=== PATIENT | female | born 1955 | race Caucasian/White ===

== ENCOUNTER 2018-06-28 17:56 | Observation (INO) ==
[2018-06-28] MEDS ORDERED: Naloxone 0.4 MG/ML INJ IVP PRN (21:00)
--- NOTE | 2018-06-28 22:06 | Internal Med History&Physical ---
<Shayla Carrillo Bibiana - Last Filed: 06/29/18 06:58> Date of Encounter: 06/29/18 Internal Medicine - H&P: HPI History of present illness: Ms. Elizabeth is a 62 year old female Internal Medicine - H&P: Meds Aspirin [Lo-Dose Aspirin EC] 81 mg PO DAILY 03/15/17 [History] Cholecalciferol (D-3) [Vitamin D] 1,000 unit PO DAILY 03/15/17 [History] Cyanocobalamin (Vitamin B-12) [Vitamin B12] 1,000 mcg PO DAILY 03/15/17 [History ] Folic Acid 0.4 mg PO DAILY 03/15/17 [History] Multivitamin [Multivitamins] 1 tab PO DAILY 03/15/17 [History] Sertraline [Zoloft] 50 mg PO DAILY 03/15/17 [History] Amlodipine Besylate/Benazepril [Lotrel 5-20 mg Capsule] 1 tab PO DAILY 06/29/18 [History] Atenolol [Tenormin] 25 mg PO DAILY 06/29/18 [History] Furosemide [Lasix] 40 mg PO DAILY 06/29/18 [History] Lovastatin 40 mg PO QPM 06/29/18 [History] 3 Allergy/AdvReac Type Severity Reaction Status Date / Time ibuprofen [From Motrin] AdvReac See Verified 03/15/17 19:32 Comments All Systems PM: A 10-system review of systems was performed and is negative for pertinent findings except as documented above in the HPI. - Constitutional Vitals: Temp Pulse Resp BP Pulse Ox 98.5 F 65 17 131/78 96 06/29/18 00:15 06/29/18 00:15 06/29/18 00:15 06/29/18 00:15 06/29/18 00:15 Internal Med - H&P Results - Labs CBC & Chem 7: 06/29/18 05:13 Labs: BMP 06/29/18 05:13 Sodium 137 Potassium 3.6 Chloride 104 Carbon Dioxide 24 BUN 9 Creatinine 0.68 Glucose 131 H Calcium 8.1 L Cardiac Enzymes 06/28/18 06/29/18 Range/Units 22:35 05:13 Troponin I 0.05 H* 0.04 H* (< 0.04) ng/mL - Assessment and plan (1) UTI (urinary tract infection) Current Visit: No Status: Inactive (2) Elevated troponin Current Visit: Yes Status: Inactive (3) Elevated brain natriuretic peptide (BNP) level Current Visit: Yes Status: Acute (4) Hyperglycemia Current Visit: Yes Status: Acute (5) DVT prophylaxis Current Visit: Yes Status: Acute (6) Hypophosphatemia Current Visit: Yes Status: Acute - Time Spent With Patient Total time spent is greater than 50% in coordination of care (as documented) at patient's floor/unit and/or counseling patient: - Attending Attestation Patient seen and examined. Chart including labs reviewed. Case discussed with resident. Agree with assessment and plan. In short patient is a 62-year-old female with a past medical history of hypertension and hyperlipidemia who presents with several day history of fever and chills. History and laboratory workup concerning for possible UTI. Patient also reportedly became transiently hypoxemic with sats dropping into the high 80s while at [facility]. Responded to O2 support. ABG was performed which shows a mild metabolic alkalosis likely secondary to contraction alkalosis in the setting of decreased by mouth intake and continued Lasix use. She reports history of anxiety. Patient received 1 dose of Rocephin at [facility] prior to transfer. We will follow-up blood and urine cultures. We will continue antibiotics. Given elevated BNP, hypoxemia and elevated troponin, likely secondary to demand, we will obtain echocardiogram. Patient however denies any chest pain and initial EKG was unremarkable. Continue to trend troponin. <Mary Kay Francis - Last Filed: 06/29/18 11:03> Date of Encounter: 06/29/18 Time of Encounter: 22:04 Internal Medicine - H&P: HPI Chief complaint: UTI, fevers/chills Admitted From: Home Plans for Post Hospital Care: Home History of present illness: Ms. Elizabeth is a 62 year old female with PMH of HTN and HLD presenting to the emergency department with c/o urinary incontinence, fevers/chills, and feeling sick. Endorses urinary symptoms of frequency, incontinence above baseline, and discomfort with urination x 5 days. She denies hematuria, pyuria, and malodorous urine. She also reports nausea, vomiting, fevers, chills, intermittent diaphoresis, and dull ache in the lower back bilaterally x 3 days. Tmax at home 39.6 degrees Celsius; she took extra strength Tylenol for fever today but doesn't know the dosage. She denies experiencing chest pain or pressure, but does admit to some shortness of breath. She is able to walk from one room of her home to the next without dyspnea, but reports she is unable to walk to her mailbox without getting short of breath; she also mentions history of anxiety that sometimes gives her shortness of breath. Patient denies personal history of PAD, CVA/TIA, MD, CABG, PCI/stent; denies personal history of DM and states that scratch that and states she wouldnt be surprised to find out she does have diabetes. Reports history of stress test ( false positive) followed by negative C about 15 years ago at outside hospital--she states these tests were part of a workup that revealed she had an adverse reaction of chest pain to Motrin/ibuprofen. Family history significant for hypertension as well as of her father at age 43 from massive heart attack. Patient is a former tobacco smoker and quit over 25 years ago and reports two large glasses of wine daily. [facility] ED: Patient reportedly febrile and was given Tylenol which helped reduce the fever. Initial EKG unremarkable. First troponin 0.08, BNP 768, glucose 156 , phosphate 1.9, lactate 1.5. No leukocytosis. Urine positive for leukocyte esterase, WBCs, and few bacteria. Episode of hypoxia around 88% room air with response to 96% on 2 L nasal cannula. Patient transferred to this facility for further evaluation and care. Past Med Surg Social Fam HX - Past Medical History Medical history: hyperlipidemia, hypertension Psychiatric history: anxiety - Past Surgical History Additional surgical history: gastric bypass - Social History Smoking Status: Never smoker Smokeless Tobacco Status: No Alcohol use: none, occasionally Drug use: none - Family History Mother Hx Family Cardiac Disorders: Yes All Systems PM: A 10-system review of systems was performed and is negative for pertinent findings except as documented above in the HPI. - Constitutional Constitutional: as per HPI - Cardiovascular Cardiovascular ROS IM: as per HPI, no claudication - Respiratory Respiratory: as per HPI, cough (dry) - Gastrointestinal Gastrointestinal: as per HPI, diarrhea - Genitourinary Genitourinary: as per HPI - Musculoskeletal Musculoskeletal ROS IM: as per HPI - Constitutional Vitals: Temp Pulse Resp BP Pulse Ox 98.7 F 62 17 146/64 93 10/11/18 20:44 06/28/18 20:44 06/28/18 20:44 06/28/18 20:44 06/28/18 20:44 General appearance: Present: A&O X 3, no acute distress, obese, answers questions appropriately Exam: . - Head Head exam: Present: atraumatic, normocephalic - Eye Eye exam: Present: EOMI, PERRL, sclera anicteric Pupils: Present: PERRL - Neck Neck exam general surgery: Present: supple, trachea midline - Respiratory Respiratory exam: Present: CTAB. Absent: rales, respiratory distress, rhonchi, wheezes, tachypnea - Cardiovascular Cardiovascular exam: Present: distant heart sounds, RRR, +S1, +S2. Absent: gallop, rubs - GI/Abdominal GI/Abdominal exam: Present: normal bowel sounds, soft. Absent: distended, guarding, rebound, rigid, tenderness, no peritoneal signs - Extremities Exam Extremities exam: Present: pedal edema (BLE +1 pitting), warm. Absent: cyanotic , tenderness - Back Exam Back exam: Absent: CVA tenderness (L), CVA tenderness (R) - Neurological Exam Neurological exam: Present: alert, CN II-XII intact, oriented X3, no focal deficits. Absent: facial droop, speech deficit - Skin Skin exam: Present: dry, intact, normal color, warm. Absent: diaphoretic, erythema Internal Med - H&P Results - Labs CBC & Chem 7: 06/29/18 05:13 - Assessment and plan (1) UTI (urinary tract infection) Current Visit: Yes Status: Acute Assessment and plan: UA and urine micro significant for leukocyte esterase, WBCs, and bacteria Urine and blood culture results pending Per ED report she received Rocephin 1 g IVP--continue empiric antibiotic for now Continue to monitor for fever Qualifiers: Urinary tract infection type: site unspecified Hematuria presence: without hematuria Qualified Code(s): N39.0 - Urinary tract infection, site not specified (2) Elevated troponin Current Visit: Yes Status: Inactive Assessment and plan: Troponins 0.08 --> 0.05--> 0.04 Etiology unclear: Undiagnosed CHF vs ACS vs manned ischemia--rule out ACS Most likely d/t demand ischemia in the setting of decreased PO intake, N/V No h/o CHF per pt, however her BNP is 768, BLE edema above baseline, increased MARTINEZ--Echocardiogram in AM, normal recommend cardiology consult EKG showing NSR, no evidence of acute ischemia Strong family hx of HTN and father age 43 from "massive heart attack" (3) Elevated brain natriuretic peptide (BNP) level Current Visit: Yes Status: Acute Assessment and plan: BNP 768 with increased BLE edema and increased MARTINEZ per patient--echocardiogram in a.m. (4) Hyperglycemia Current Visit: Yes Status: Acute Assessment and plan: No known h/o DM, but patient states she "wouldn't be surprised" if she learned she was--Hgb A1c pending (5) Hypophosphatemia Current Visit: Yes Status: Acute Assessment and plan: Phosphate 1.9 on presentation to [facility] ED--replace and recheck (6) Metabolic alkalosis Current Visit: Yes Status: Acute Assessment and plan: Likely resulting from contraction alkalosis in the setting of decreased PO intake and continued Lasix use ABG: pH 7.48 / pCO2 41 / HCO3 30 IV fluid replacement (7) Hypoxemia Current Visit: Yes Status: Inactive Assessment and plan: Acute, resolved SpO2 88% room air @ [facility] ED, responded with 2L nasal cannula SpO2 93-96% ABG: pH 7.48 / pCO2 41 / pO2 87 / HCO3 30 (8) DVT prophylaxis Current Visit: Yes Status: Acute Assessment and plan: Heparin 5, 000 units SubQ Q8H - Time Spent With Patient Total time spent is greater than 50% in coordination of care (as documented) at patient's floor/unit and/or counseling patient:
[2018-06-28] MEDS: *HR* Heparin 5,000 UNIT/ML VIAL SQ SCH (23:05)
[2018-06-28] MEDS: 0.9 % Sodium Chloride 1,000 ML IVC SCH (23:05)
[2018-06-29 06:01] LABS: BUN/Creatinine Ratio 13 (6-26); Blood Urea Nitrogen 9 mg/dL (8-23); Calcium 8.1 mg/dL (8.6-10.3); Carbon Dioxide 24 mEq/L (23-29); Chloride 104 mEq/L (98-107); Chol/HDL Ratio 2.3 (0-4.9); Cholesterol 131 mg/dL (< 200); Glucose 131 mg/dL (70-105); HDL Cholesterol 57 mg/dL (40-59); LDL Cholesterol,Calculated 52 mg/dL (0-99); Osmolality,Calculated 284 (280-300); Potassium 3.6 mEq/L (3.5-5.1); Sodium 137 mEq/L (136-145); Triglycerides 112 mg/dL (< 150); eGFR For Non-African Americans > 60 (> 60)
[2018-06-29 06:09] LABS: Troponin I 0.04 ng/mL (< 0.04)
[2018-06-29] MEDS: *HR* Heparin 5,000 UNIT/ML VIAL SQ SCH ×3 (06:12→23:00)
[2018-06-29] MEDS: cefTRIAXone 1,000 MG in Water for inj. (sterile) 20 ML 10 ML IVP SCH (08:02)
[2018-06-29] MEDS ORDERED: Acetaminophen 325 MG TABLET PO PRN (08:30)
[2018-06-29] MEDS: Furosemide 40 MG TABLET PO SCH ×2 (08:58→09:20)
[2018-06-29] MEDS: Lisinopril 20 MG TABLET PO SCH (08:59)
[2018-06-29] MEDS: Folic Acid 1 MG TABLET PO SCH (08:59)
[2018-06-29] MEDS: Aspirin Enteric Coated 81 MG Tablet PO SCH (08:59)
[2018-06-29] MEDS: amLODIPine 5 MG TABLET PO SCH (08:59)
[2018-06-29] MEDS: Cyanocobalamin (B-12) 1,000 MCG TABLET PO SCH (08:59)
[2018-06-29] MEDS: Cholecalciferol (D-3) 1,000 UNIT TABLET PO SCH (08:59)
[2018-06-29] MEDS: Multivit/Ca/Min/Fe/FA 1 TAB TABLET PO SCH (08:59)
[2018-06-29] MEDS ORDERED: cefTRIAXone 1,000 MG in Water for inj. (sterile) 20 ML 10 ML IVP SCH (09:00)
[2018-06-29 09:10] LABS: Estimated Average Glucose 134 mg/dl; Hemoglobin A1C 6.3 %
--- NOTE | 2018-06-29 11:25 | Internal Med Progress Note ---
Hospitalist Progress Note - Encounter Date of Encounter: 06/29/18 Time of Encounter: 09:00 - Subjective Interval History: Pt feels better. Still has low fever. Denies N/V/flank pain. Has dysuria in ER. Denies CP/SOB. - Exam Vitals: Temp Pulse Resp BP Pulse Ox 100.1 F H 78 19 155/99 93 06/29/18 08:00 06/29/18 08:00 06/29/18 08:00 06/29/18 08:00 06/29/18 08:00 Exam: Pt is AAO x 3, in NAD HEENT: NC/AT, PERRL Neck: Supple, no JVD, no LAD Lungs: CTA b/l Heart: S1S2, RRR Abd: Soft, NT, CVAT negative b/l Ext: no pedal edema. Neuro: AAO x 3, no focal deficit. - Assessment and Plan (1) UTI (urinary tract infection) Current Visit: Yes Status: Acute Assessment and Plan: Improved fever/symptoms on iv rocephin, will cont. - Blood and urine culture sent by [facility], result pending - No signs of pyelonephritis. (2) Elevated troponin Current Visit: Yes Status: Inactive Assessment and Plan: Troponins 0.08 --> 0.05--> 0.04 - Pt denies chest pain. - Most likely demand ischemia from UTI/Fever (3) Elevated brain natriuretic peptide (BNP) level Current Visit: Yes Status: Acute Assessment and Plan: No signs of fluid overload. Echo shows EF 55%, moderate diastolic dysfunction. Will cont closely monitor fluid status. Will cont pt's home meds po lasix. (4) Hyperglycemia Current Visit: Yes Status: Acute Assessment and Plan: No known h/o DM, but patient states she "wouldn't be surprised" if she learned she was--Hgb A1c 6.3, consider prediabetes. Place her on DM diet. (5) DVT prophylaxis Current Visit: Yes Status: Acute Assessment and Plan: Heparin 5, 000 units SubQ Q8H (6) Hypophosphatemia Current Visit: Yes Status: Acute Assessment and Plan: Phosphate 1.9 on presentation to [place] ED--replace and recheck (7) Hypoxemia Current Visit: Yes Status: Inactive Assessment and Plan: CXR in [facility] ER shows no acute change. Cont supportive treatment with NC O2 as needed. - Time Spent with Patient Total time spent is greater than 50% in coordination of care (as documented) at patient's floor/unit and/or counseling patient: 30 min 25 - 35 minutes Plan of Care Discussed with: patient Internal Medicine: Result - Labs CBC & Chem 7: 06/29/18 05:13 Labs: BMP 06/29/18 05:13 Sodium 137 Potassium 3.6 Chloride 104 Carbon Dioxide 24 BUN 9 Creatinine 0.68 Glucose 131 H Calcium 8.1 L Cardiac Enzymes 06/28/18 06/29/18 Range/Units 22:35 05:13 Troponin I 0.05 H* 0.04 H* (< 0.04) ng/mL - Impressions Impressions Echocardiogram 06/29/18 22:43 Impressions: LVEF 55%. Not all LV wall segments were well visualized. Moderate left ventricular diastolic dysfunction. Normal right ventricular structure and function. Trivial valvular dysfunction. Consult Discharge Plan - Plan Referrals: Addy Solorio MD [Primary Care Provider] - (1) UTI (urinary tract infection) Qualifiers: Urinary tract infection type: site unspecified Hematuria presence: without hematuria Qualified Code(s): N39.0 - Urinary tract infection, site not specified
[2018-06-29 12:17] LABS: Phosphorous 2.1 mg/dL (2.7-4.5)
[2018-06-29] MEDS: 0.9 % Sodium Chloride 1,000 ML IVC SCH (13:39)
[2018-06-29] MEDS: Melatonin 3 MG TABLET PO PRN (20:24)
[2018-06-30 04:56] LABS: Basophils % 0.5 %; Eosinophils % 0.5 %; Hematocrit 33.8 % (35.3-44.9); Hemoglobin 10.9 g/dL (11.5-15.4); Immature Granulocytes % 0.3 % (0-4); Lymphocytes # 1.5 K/mcL (0.6-4.6); Lymphocytes % 17.4 %; Mean Corpuscular HGB Conc 32.2 g/dL (31.6-35.5); Mean Corpuscular Hemoglobin 32.2 pg (28.0-33.3); Mean Platelet Volume 10.3 fL (9.4-12.4); Monocytes # 1.1 K/mcL (0.0-1.3); Monocytes % 12.9 %; Neutrophils # 5.9 K/mcL (1.6-8.9); Platelet Count 165 K/mcL (140-400); Red Blood Count 3.38 M/mcL (3.82-4.97); Red Cell Distribution Width 14.3 % (11.5-14.5); Segmented Neutrophils % 68.4 %
[2018-06-30] MEDS: *HR* Heparin 5,000 UNIT/ML VIAL SQ SCH ×3 (05:10→21:04)
[2018-06-30 05:17] LABS: BUN/Creatinine Ratio 13 (6-26); Blood Urea Nitrogen 8 mg/dL (8-23); Calcium 8.6 mg/dL (8.6-10.3); Carbon Dioxide 27 mEq/L (23-29); Chloride 104 mEq/L (98-107); Glucose 145 mg/dL (70-105); Osmolality,Calculated 285 (280-300); Potassium 3.5 mEq/L (3.5-5.1); Sodium 137 mEq/L (136-145); eGFR For Non-African Americans > 60 (> 60)
[2018-06-30] MEDS: cefTRIAXone 1,000 MG in Water for inj. (sterile) 20 ML 10 ML IVP SCH (09:55)
[2018-06-30] MEDS: Lisinopril 20 MG TABLET PO SCH (09:56)
[2018-06-30] MEDS: Aspirin Enteric Coated 81 MG Tablet PO SCH (09:56)
[2018-06-30] MEDS: Furosemide 40 MG TABLET PO SCH (09:56)
[2018-06-30] MEDS: amLODIPine 5 MG TABLET PO SCH (09:56)
[2018-06-30] MEDS: Folic Acid 1 MG TABLET PO SCH (09:56)
[2018-06-30] MEDS: Cholecalciferol (D-3) 1,000 UNIT TABLET PO SCH (09:56)
[2018-06-30] MEDS: Cyanocobalamin (B-12) 1,000 MCG TABLET PO SCH (09:56)
[2018-06-30] MEDS: Multivit/Ca/Min/Fe/FA 1 TAB TABLET PO SCH (09:56)
--- NOTE | 2018-06-30 11:23 | Internal Med Progress Note ---
Hospitalist Progress Note - Encounter Date of Encounter: 06/30/18 Time of Encounter: 09:00 - Subjective Interval History: Pt feels better. No overnight fever. Denies N/V/flank pain. Denies CP/SOB. - Exam Vitals: Temp Pulse Resp BP Pulse Ox 97.9 F 58 18 135/65 94 06/30/18 10:56 06/30/18 10:56 06/30/18 10:56 06/30/18 10:56 06/30/18 10:56 Exam: Pt is AAO x 3, in NAD HEENT: NC/AT, PERRL Neck: Supple, no JVD, no LAD Lungs: CTA b/l Heart: S1S2, RRR Abd: Soft, NT, CVAT negative b/l Ext: no pedal edema. Neuro: AAO x 3, no focal deficit. - Assessment and Plan (1) UTI (urinary tract infection) Current Visit: Yes Status: Acute Assessment and Plan: Improved fever/symptoms on iv rocephin, will cont. - Blood and urine culture sent by [facility], result pending - No signs of pyelonephritis. (2) Elevated troponin Current Visit: Yes Status: Inactive Assessment and Plan: Troponins 0.08 --> 0.05--> 0.04 - Pt denies chest pain. - Most likely demand ischemia from UTI/Fever (3) Elevated brain natriuretic peptide (BNP) level Current Visit: Yes Status: Acute Assessment and Plan: No signs of fluid overload. Echo shows EF 55%, moderate diastolic dysfunction. Will cont closely monitor fluid status. Will cont pt's home meds po lasix. (4) Hyperglycemia Current Visit: Yes Status: Acute Assessment and Plan: No known h/o DM, but patient states she "wouldn't be surprised" if she learned she was--Hgb A1c 6.3, consider prediabetes. Place her on DM diet. FBS 145 today (5) DVT prophylaxis Current Visit: Yes Status: Acute Assessment and Plan: Heparin 5, 000 units SubQ Q8H (6) Hypoxemia Current Visit: Yes Status: Inactive Assessment and Plan: CXR in [facility] shows no acute change. Cont supportive treatment with NC O2 as needed. Pt's SpO2 94% in RA when I see her today. Denies cough/SOB DVT Prophylaxis: Heparin SC - Time Spent with Patient Total time spent is greater than 50% in coordination of care (as documented) at patient's floor/unit and/or counseling patient: 25 - 35 minutes Plan of Care Discussed with: patient Internal Medicine: Result - Labs CBC & Chem 7: 06/30/18 04:38 06/30/18 04:38 Labs: Short CBC 06/30/18 Range/Units 04:38 WBC 8.7 (4.3-11.1) K/mcL Hgb 10.9 L (11.5-15.4) g/dL Hct 33.8 L (35.3-44.9) % Plt Count 165 (140-400) K/mcL Neutrophils # 5.9 (1.6-8.9) K/mcL BMP 06/30/18 04:38 Sodium 137 Potassium 3.5 Chloride 104 Carbon Dioxide 27 BUN 8 Creatinine 0.62 Glucose 145 H Calcium 8.6 Consult Discharge Plan - Plan Referrals: Addy Solorio MD [Primary Care Provider] - (1) UTI (urinary tract infection) Qualifiers: Urinary tract infection type: site unspecified Hematuria presence: without hematuria Qualified Code(s): N39.0 - Urinary tract infection, site not specified
[2018-06-30] MEDS: Melatonin 3 MG TABLET PO PRN (21:03)
[2018-07-01] MEDS: *HR* Heparin 5,000 UNIT/ML VIAL SQ SCH (05:20)
[2018-07-01] MEDS: Lisinopril 20 MG TABLET PO SCH (07:41)
[2018-07-01] MEDS: amLODIPine 5 MG TABLET PO SCH (07:41)
[2018-07-01] MEDS: Furosemide 40 MG TABLET PO SCH (07:41)
[2018-07-01] MEDS: Aspirin Enteric Coated 81 MG Tablet PO SCH (07:42)
[2018-07-01] MEDS: Multivit/Ca/Min/Fe/FA 1 TAB TABLET PO SCH (07:42)
[2018-07-01] MEDS: Cholecalciferol (D-3) 1,000 UNIT TABLET PO SCH (07:42)
[2018-07-01] MEDS: Cyanocobalamin (B-12) 1,000 MCG TABLET PO SCH (07:42)
[2018-07-01] MEDS: Folic Acid 1 MG TABLET PO SCH (07:42)
[2018-07-01] MEDS: cefTRIAXone 1,000 MG in Water for inj. (sterile) 20 ML 10 ML IVP SCH (07:42)
--- NOTE | 2018-07-01 10:39 | Discharge Summary ---
Orders not resulted at time of discharge: Pending orders 06/28/18 21:03 ECG 12 lead ECG [ECG] Stat Date of Encounter: 07/01/18 Time of Encounter: 09:00 - Discharge Diagnosis (1) UTI (urinary tract infection) Priority: Primary Status: Acute Qualifiers: Urinary tract infection type: site unspecified Hematuria presence: without hematuria Qualified Code(s): N39.0 - Urinary tract infection, site not specified (2) Elevated troponin Priority: Primary Status: Inactive (3) Elevated brain natriuretic peptide (BNP) level Priority: Primary Status: Acute (4) Hyperglycemia Priority: Secondary Status: Acute (5) DVT prophylaxis Priority: Secondary Status: Acute (6) Hypophosphatemia Priority: Secondary Status: Acute (7) Morbid obesity Priority: Secondary Status: Acute (8) Pre-diabetes Priority: Secondary Status: Acute (9) Diastolic CHF Priority: Secondary Status: Acute Qualifiers: Heart failure chronicity: chronic Qualified Code(s): I50.32 - Chronic diastolic (congestive) heart failure Hospital course: Ms. Elizabeth is a 62 year old female present to [facility] ER for fever and dysuria. Pt was admitted as UTI. She was treated with iv rocephin and fever resolved. Urine culture shows E Coli sensitive to rocephin and cipro. Will d/c pt home with po cipro. Pt's O2 at lower side, and snore during night. Echo shows diastolic CHF. Before discharge, 6 minwalking test down and pt not qualified for home O2. I have seen and examined pt. She is AAO x 3, no fever, no SOB, denies dysuria/ flank pain.nausea. Vitals stable. Pt was advice lose weight. Her HgA1C 6.3, consider pre-diabetes, eduction for DM diet and closely follow up with PCP. Pt also was adviced for sleep study as outpatient to r/o CYNTHIA. She was given cipro po 500mg bid for 5 days. Discharge discussed with: patient - Time Spent with Patient Total time spent providing and/or coordinating discharge services: 25min Less than 30 minutes - Discharge Medications Prescriptions: Ciprofloxacin [Cipro] 500 mg PO BID 5 Days #10 tablet Home Medications: Aspirin [Lo-Dose Aspirin EC] 81 mg PO DAILY 03/15/17 [History] Cholecalciferol (D-3) [Vitamin D] 1,000 unit PO DAILY 03/15/17 [History] Cyanocobalamin (Vitamin B-12) [Vitamin B12] 1,000 mcg PO DAILY 03/15/17 [History ] Folic Acid 0.4 mg PO DAILY 03/15/17 [History] Multivitamin [Multivitamins] 1 tab PO DAILY 03/15/17 [History] Sertraline [Zoloft] 50 mg PO DAILY 03/15/17 [History] Amlodipine Besylate/Benazepril [Lotrel 5-20 mg Capsule] 1 tab PO DAILY 06/29/18 [History] Atenolol [Tenormin] 25 mg PO DAILY 06/29/18 [History] Furosemide [Lasix] 40 mg PO DAILY 06/29/18 [History] Lovastatin 40 mg PO QPM 06/29/18 [History] Ciprofloxacin [Cipro] 500 mg PO BID 5 Days #10 tablet 07/01/18 [Rx] Allergies/Adverse Reactions: 3 Allergy/AdvReac Type Severity Reaction Status Date / Time ibuprofen [From Motrin] AdvReac See Verified 03/15/17 19:32 Comments Date of admission: 06/28/18 19:39 Primary care physician: Addy Solorio MD Discharging clinician: Keisha Oliveira Anticipated date of discharge: 07/01/18 - Constitutional Vitals: Temp Pulse Resp BP Pulse Ox 98.9 F 74 16 187/73 93 07/01/18 06:47 07/01/18 06:47 07/01/18 06:47 07/01/18 06:47 07/01/18 10:10 General appearance: Present: A&O X 3, morbidly obese, no acute distress, answers questions appropriately Exam: in NAD - Head Head exam: Present: atraumatic, normocephalic - Eye Eye exam: Present: PERRL, conjuntiva pink, sclera anicteric Pupils: Present: PERRL - Neck Neck exam general surgery: Present: supple, trachea midline. Absent: lymphadenopathy - Respiratory Respiratory exam: Present: CTAB. Absent: accessory muscle use, rales, rhonchi, wheezes - Cardiovascular Cardiovascular exam: Present: RRR, +S1, +S2. Absent: diastolic murmur, gallop, rubs, systolic murmur - GI/Abdominal GI/Abdominal exam: Present: normal bowel sounds, soft, no peritoneal signs. Absent: distended, tenderness - Extremities Exam Extremities exam: Present: pedal edema (mild pedal edema b/l), warm, radial pulses palpable and symmetrical. Absent: calf tenderness, cyanotic - Neurological Exam Neurological exam: Present: CN II-XII intact, oriented X3, no focal deficits. Absent: pronater drift, facial droop, speech deficit - Skin Skin exam: Present: dry, intact - Patient Status Disposition: Home, Self-Care Condition: Good Functional capacity at discharge: independent ambulation Overall status at discharge: patient is back to baseline - Discharge Instructions Follow Up With: Addy Solorio MD [Primary Care Provider] - - Diet and Activity Activity: increase activity as tolerated Diet: diabetic diet, low fat, low cholesterol, low salt diet
[2018-07-01 10:55] VITALS: BP 154/84
== END 2018-07-01 11:25 | disposition home or self-care (01) ==
LOC: 2ANU → SUATTDRO 19:39
PROVIDERS: ADMIT Internal Medicine; ATTEND Internal Medicine

== ENCOUNTER 2019-09-14 15:51 | Observation (INO) ==
[2019-09-14] MEDS ORDERED: 0.9 % Sodium Chloride 1,000 ML IVC ONE ×2 (16:29→18:51)
[2019-09-14 17:04] LABS: Basophils % 0.4 %; Eosinophils % 0.2 %; Hematocrit 31.9 % (35.3-44.9); Hemoglobin 10.7 g/dL (11.5-15.4); Immature Granulocytes % 1.8 % (0-4); Lymphocytes # 1.7 K/mcL (0.6-4.6); Lymphocytes % 17.2 %; Mean Corpuscular HGB Conc 33.5 g/dL (31.6-35.5); Mean Corpuscular Volume 98.5 fL (83.0-100.0); Mean Platelet Volume 10.2 fL (9.4-12.4); Monocytes # 1.3 K/mcL (0.0-1.3); Monocytes % 12.5 %; Neutrophils # 6.8 K/mcL (1.6-8.9); Platelet Count 237 K/mcL (140-400); Red Blood Count 3.24 M/mcL (3.82-4.97); Red Cell Distribution Width 15.2 % (11.5-14.5); Segmented Neutrophils % 67.9 %; White Blood Count 10.1 K/mcL (4.3-11.1)
[2019-09-14 17:23] LABS: BUN/Creatinine Ratio 14 (6-26); Blood Urea Nitrogen 13 mg/dL (8-23); Carbon Dioxide 27 mEq/L (23-29); Chloride 97 mEq/L (98-107); Glucose 110 mg/dL (70-105); Osmolality,Calculated 279 (280-300); Potassium 3.2 mEq/L (3.5-5.1); Sodium 134 mEq/L (136-145); eGFR For African Americans > 60 (> 60); eGFR For Non-African Americans > 60 (> 60)
[2019-09-14 17:33] LABS: Bilirubin,Urine Negative (Negative); Blood,Urine Negative (Negative); Clarity,Urine Cloudy (Clear); Color,Urine Dark Yellow (Yellow); Glucose,Urine (UA) Normal (Normal); Ketones,Urine Negative (Negative); Leukocyte Esterase,Urine Large (Negative); Nitrite,Urine Negative (Negative); Protein,Urine 30 mg/dL (Neg-Trace); Urobilinogen,Urine Normal (Normal)
[2019-09-14] MEDS ORDERED: Potassium Chloride Elixir 20 MEQ/15 ML UDC PO ONE ×2 (17:33→21:53)
[2019-09-14] MEDS ORDERED: cefTRIAXone 1,000 MG in Water for inj. (sterile) 10 ML IVP ONE (17:34)
[2019-09-14 17:36] LABS: RBC,Urine 0-3 per hpf (0-3); Squamous Epithelial Cell,Urine Many per lpf (None-Few); WBC,Urine 50-100 per hpf (0-3)
[2019-09-14 17:47] LABS: Bacteria,Urine Moderate per hpf (None-Few); Hyaline Casts,Urine Few per lpf (None-Few)
[2019-09-14 17:48] LABS: Renal Epithelial Cells,Urine Few per hpf (None-Few)
[2019-09-14] MEDS ORDERED: cefTRIAXone 1,000 MG in 0.9 % Sodium Chloride Mini Bag 100 ML IVPB ONE (21:19)
[2019-09-14] MEDS ORDERED: Ondansetron ODT 4 MG TAB.RAPDIS SL PRN (21:50)
[2019-09-14] MEDS ORDERED: Naloxone 0.4 MG/ML INJ IVP PRN (21:50)
[2019-09-14] MEDS: 0.9 % Sodium Chloride 1,000 ML IVC SCH (23:37)
[2019-09-15] MEDS ORDERED: cefTRIAXone 2,000 MG in Water for inj. (sterile) 20 ML IVP SCH (07:00)
[2019-09-15 07:20] LABS: Basophils % 0.3 %; Eosinophils % 0.1 %; Hematocrit 28.8 % (35.3-44.9); Hemoglobin 9.6 g/dL (11.5-15.4); Immature Reticulocyte % 13.5 % (11.0-38.0); Lymphocytes # 2.1 K/mcL (0.6-4.6); Mean Corpuscular HGB Conc 33.3 g/dL (31.6-35.5); Mean Corpuscular Hemoglobin 33.6 pg (28.0-33.3); Mean Corpuscular Volume 100.7 fL (83.0-100.0); Mean Platelet Volume 10.3 fL (9.4-12.4); Monocytes # 1.3 K/mcL (0.0-1.3); Neutrophils # 6.4 K/mcL (1.6-8.9); Platelet Count 249 K/mcL (140-400); Red Blood Count 2.86 M/mcL (3.82-4.97); Red Cell Distribution Width 15.4 % (11.5-14.5); Retculocyte # 0.05 M/mcL (0.05-0.10); Reticulocyte % 1.8 % (1.6-2.8); Segmented Neutrophils % 63.6 %; White Blood Count 10.1 K/mcL (4.3-11.1)
[2019-09-15 07:21] LABS: INR 1.2; Prothrombin Time 13.4 Seconds (9.4-12.1)
[2019-09-15 07:56] LABS: % Iron Saturation 5 % (15-50); Alanine Aminotransferase 17 Units/L (7-52); Alkaline Phosphatase 69 Units/L (34-104); Aspartate Amino Transferase 22 Units/L (13-39); BUN/Creatinine Ratio 11 (6-26); Bilirubin,Total 0.3 mg/dL (0.3-1.0); Blood Urea Nitrogen 11 mg/dL (8-23); Calcium 8.5 mg/dL (8.6-10.3); Carbon Dioxide 23 mEq/L (23-29); Chloride 100 mEq/L (98-107); Chol/HDL Ratio 6.4 (0-4.9); Cholesterol 134 mg/dL (< 200); Globulin 2.9 g/dL (2.4-3.5); Glucose 138 mg/dL (70-105); HDL Cholesterol 21 mg/dL (40-59); Iron 11 mcg/dL (50-170); LDL Cholesterol,Calculated 87 mg/dL (0-99); Magnesium 1.9 mg/dL (1.6-2.6); Osmolality,Calculated 278 (280-300); Phosphorous 2.3 mg/dL (2.7-4.5); Potassium 4.1 mEq/L (3.5-5.1); Sodium 133 mEq/L (136-145); Total Protein 5.9 g/dL (6.4-8.9); Transferrin 147 mg/dL (203-362); Triglycerides 130 mg/dL (< 150); Troponin I < 0.03 ng/mL (< 0.04); eGFR For African Americans > 60 (> 60); eGFR For Non-African Americans 57 (> 60)
[2019-09-15 08:05] LABS: Ferritin 246 ng/mL (10-120)
[2019-09-15 08:06] LABS: Folate 16.3 ng/mL (3.0-16.0)
[2019-09-15] MEDS ORDERED: Folic Acid 1 MG TABLET PO SCH (09:00)
[2019-09-15] MEDS ORDERED: Aspirin Enteric Coated 81 MG Tablet PO SCH (09:00)
[2019-09-15] MEDS: 0.9 % Sodium Chloride 1,000 ML IVC SCH (09:21)
[2019-09-15 10:39] VITALS: BP 123/76
[2019-09-15] MEDS ORDERED: *HR* Heparin 5,000 UNIT/ML VIAL SQ SCH (18:00)
== END 2019-09-15 12:12 | disposition home or self-care (01) ==
LOC: 2ANU 15:51 → EMEROOARM 15:51 → SUATTDRO 19:15 → 2ANU 19:33
PROVIDERS: ADMIT Internal Medicine; ATTEND Internal Medicine